=== PATIENT | male | born 1995 | race Two or more races ===

== ENCOUNTER 2019-05-28 10:01 | Emergency (ER) | payer OTHER ==
[~2019-05-28] VITALS: Ht 170.2 cm; Wt 78.0 kg
== END 2019-05-28 13:58 | disposition home or self-care (01) ==
LOC: ER 10:01
DX: S62.522A Displaced fracture of distal phalanx of left thumb, initial encounter for closed fracture (principal); W22.8XXA Striking against or struck by other objects, initial encounter; Y93.89 Activity, other specified; Y92.89 Other specified places as the place of occurrence of the external cause; Y99.8 Other external cause status